=== PATIENT | female | born 1950 | race Caucasian/White ===

== ENCOUNTER 2017-07-09 11:27 | Inpatient (IN) ==
[2017-07-09] MEDS ORDERED: ONDANSETRON 4 MG/2 ML VIAL IV STA ×2 (12:25→16:40)
[2017-07-09] MEDS ORDERED: MORPHINE 4 MG/1 ML VIAL IV STA ×2 (12:25→16:41)
[2017-07-09] MEDS ORDERED: SODIUM CHLORIDE 0.9% 1,000 ML IV STA (12:25)
[2017-07-09] MEDS ORDERED: ONDANSETRON 4 MG/2 ML VIAL ONE ×2 (12:26→16:43)
[2017-07-09] MEDS ORDERED: MORPHINE 4 MG/1 ML VIAL ONE ×2 (12:26→16:42)
[2017-07-09 12:42] LABS: Basophils # 0.1 10*3/uL (0.0-0.2); Basophils % 0.8 % (0.0-0.8); Eosinophils % 0.2 % (0.00-10.9); Hematocrit 42.2 VOL% (35.7-47.0); Hemoglobin 14.2 GM/DL (12.0-16.0); Immature Granulocytes % 0.9 %; Immature Granulocytes Absolute 0.08 #; Lymphocytes # 1.3 10*3/uL (1.4-4.0); Lymphocytes % 14.3 % (21.3-54.2); Mean Corpuscular HGB Conc 33.6 GM/DL (32-36); Mean Corpuscular Hemoglobin 29 PG (27-34); Mean Corpuscular Volume 85.9 FL (87-102); Mean Platelet Volume 9.4 FL (9.6-12.0); Monocytes # 0.6 10*3/uL (0.11-0.8); Monocytes % 6.9 % (1.7-12.7); Neutrophils % 76.9 % (38.7-73.9); Platelet Count 241 T/CUMM (130-400); Red Blood Count 4.91 MC/CUMM (3.8-5.5); Red Cell Distribution Width 13.3 % (9.3-17.3); White Blood Count 9.1 T/CUMM (4-12)
[2017-07-09 12:48] LABS: Apearance,Urine CLEAR (Clear); Bilirubin,Urine Negative (Negative); Blood, Urine Small mg/dL (Negative); Glucose,Urine (UA) Negative (Negative); Hyaline Casts,Urine 3 /LPF (0-3); Ketones,Urine 5 mg/dL (Negative); Mucus,Urine Occasional /LPF (Occasional); Nitrite,Urine Negative (Negative); Protein,Urine Negative; RBC,Urine 1 /HPF (0-4); Squamous Epithelial Cell,Urine Occasional /HPF (0-10); Urine Color Yellow (Yellow); Urine Specific Gravity 1.017 (1.001-1.035); Urine Urobilinogen < 2.0 EU/DL (0.2-1.0); WBC,Urine 1 /HPF (0-6)
[2017-07-09 13:01] LABS: Albumin 4.3 G/DL (3.4-5.0); Bilirubin,Total 0.5 MG/DL (0.2-1.0); Calcium 9.5 MG/DL (8.5-10.1); Osmolality,Calculated 283.3 MOS/KG (273-304); Potassium 4.1 MMOL/L (3.5-5.1); Total Protein 7.5 G/DL (6.4-8.3)
[2017-07-09] MEDS ORDERED: ACETAMINOPHEN 325 MG TABLET PO PRN (17:47)
[2017-07-09] MEDS: DEXTROSE 5% NACL 0.45% 1,000 ML IV SCH (18:30)
[2017-07-09 18:37] LABS: Calcium 8.6 MG/DL (8.5-10.1); Osmolality,Calculated 281.3 MOS/KG (273-304); Potassium 4.3 MMOL/L (3.5-5.1)
[2017-07-09] MEDS ORDERED: BENZOCAINE 20% SPRAY 57 GM CAN TOP ONE (19:33)
[2017-07-09] MEDS: ONDANSETRON 4 MG/2 ML VIAL IV PRN (21:01)
[2017-07-09] MEDS: MORPHINE 4 MG/1 ML VIAL IV PRN (21:04)
[2017-07-10] MEDS: ONDANSETRON 4 MG/2 ML VIAL IV PRN ×3 (02:45→21:29)
[2017-07-10] MEDS: DEXTROSE 5% NACL 0.45% 1,000 ML IV SCH ×4 (02:45→19:23)
[2017-07-10] MEDS: MORPHINE 4 MG/1 ML VIAL IV PRN ×4 (05:51→21:33)
[2017-07-10] MEDS ORDERED: BENZOCAINE 20% SPRAY 57 GM CAN TOP ONE (10:31)
[2017-07-10] MEDS: PANTOPRAZOLE 40 MG TABLET PO SCH (13:04)
[2017-07-10] MEDS: PROMETHAZINE 25 MG/1 ML VIAL IM PRN (17:18)
[2017-07-11] MEDS: DEXTROSE 5% NACL 0.45% 1,000 ML IV SCH ×3 (00:20→09:15)
[2017-07-11] MEDS: MORPHINE 4 MG/1 ML VIAL IV PRN ×3 (03:45→14:47)
[2017-07-11] MEDS: ONDANSETRON 4 MG/2 ML VIAL IV PRN ×2 (03:56→14:48)
[2017-07-11 07:21] LABS: Basophils % 0.3 % (0.0-0.8); Eosinophils % 0.1 % (0.00-10.9); Hematocrit 38.6 VOL% (35.7-47.0); Hemoglobin 12.8 GM/DL (12.0-16.0); Immature Granulocytes % 0.3 %; Immature Granulocytes Absolute 0.03 #; Lymphocytes # 1.4 10*3/uL (1.4-4.0); Lymphocytes % 13.4 % (21.3-54.2); Mean Corpuscular HGB Conc 33.2 GM/DL (32-36); Mean Corpuscular Hemoglobin 29 PG (27-34); Mean Corpuscular Volume 86.9 FL (87-102); Mean Platelet Volume 9.5 FL (9.6-12.0); Monocytes # 1.1 10*3/uL (0.11-0.8); Monocytes % 11.2 % (1.7-12.7); Neutrophils # 7.6 10*3/uL (1.4-7.4); Neutrophils % 74.7 % (38.7-73.9); Platelet Count 218 T/CUMM (130-400); Red Blood Count 4.44 MC/CUMM (3.8-5.5); Red Cell Distribution Width 13.2 % (9.3-17.3); White Blood Count 10.2 T/CUMM (4-12)
[2017-07-11 07:58] LABS: Albumin 2.9 G/DL (3.4-5.0); Bilirubin,Total 0.6 MG/DL (0.2-1.0); Calcium 8.3 MG/DL (8.5-10.1); Osmolality,Calculated 281.1 MOS/KG (273-304); Potassium 3.9 MMOL/L (3.5-5.1); Total Protein 5.5 G/DL (6.4-8.3)
[2017-07-11] MEDS: PANTOPRAZOLE 40 MG TABLET PO SCH (08:23)
[2017-07-11] MEDS: PROMETHAZINE 25 MG/1 ML VIAL IM PRN (09:47)
[2017-07-12] MEDS: DEXTROSE 5% NACL 0.45% 1,000 ML IV SCH ×4 (01:49→19:20)
[2017-07-12] MEDS: PANTOPRAZOLE 40 MG TABLET PO SCH (08:12)
[2017-07-13] MEDS: DEXTROSE 5% NACL 0.45% 1,000 ML IV SCH (01:56)
[2017-07-13 08:17] VITALS: BP 105/50
[2017-07-13] MEDS: PANTOPRAZOLE 40 MG TABLET PO SCH (09:29)
== END 2017-07-13 10:55 | disposition home or self-care (01) | DRG 390 ==
LOC: N.ED 11:27 → N.EDINP 15:11 → N.3E 17:20
PROVIDERS: ADMIT Surgery; ATTEND Surgery